=== PATIENT | female | born 1995 | race Hispanic/Latino ===

== ENCOUNTER 2017-03-28 13:47 | Inpatient (IN) | payer OTHER ==
[2017-03-28 20:52] VITALS: BMI 28.5
[2017-03-28] MEDS: Lactated Ringer's 1,000 ML IV SCH (21:06)
[2017-03-28] MEDS ORDERED: Promethazine HCl 25 MG/ML VIAL IM PRN (21:17)
[2017-03-28] MEDS ORDERED: Diphenoxylate HCl/Atropine Tablet PO PRN (21:17)
[2017-03-28] MEDS ORDERED: Ibuprofen 800 MG TAB PO PRN (21:17)
[2017-03-28] MEDS ORDERED: Ondansetron HCl/PF 4 MG/2 ML Vial IVP PRN (21:17)
[2017-03-28] MEDS ORDERED: Misoprostol 200 MCG TAB PR PRN (21:17)
[2017-03-28] MEDS ORDERED: Carboprost 250 MCG/ML AMP IM PRN (21:17)
[2017-03-28] MEDS ORDERED: Lidocaine 1% (PF) 30 ML VIAL SC PRN (21:17)
[2017-03-28] MEDS ORDERED: Zolpidem Tartrate 5 MG TAB PO PRN (21:17)
[2017-03-28] MEDS ORDERED: Acetaminophen 500 MG TAB PO PRN (21:17)
[2017-03-28] MEDS ORDERED: HYDROcodone/Acetaminophen 5/325 mg Tablet PO PRN (21:17)
[2017-03-28] MEDS ORDERED: LR 500 ML/Oxytocin 10 units 500 ML IV SCH (21:30)
[2017-03-28 21:31] LABS: Hematocrit 32.1 % (36.0-47.0); Mean Platelet Volume 8.1 fL (7.4-10.4); Red Blood Cell (RBC) Count 3.48 mill/uL (4.20-5.40); White Blood Cell (WBC) Count 13.7 thou/uL (4.8-10.8)
[2017-03-28] MEDS: Misoprostol 100 MCG TAB VAG SCH (21:36)
[2017-03-29] MEDS: Misoprostol 100 MCG TAB VAG SCH ×2 (01:17→04:38)
[2017-03-29] MEDS: Lactated Ringer's 1,000 ML IV SCH ×3 (03:26→10:24)
[2017-03-29] MEDS ORDERED: Fentanyl 4 mcg/Marc 0.1% Cadd 100 ML ONE (08:48)
[2017-03-29] MEDS ORDERED: Ondansetron HCl/PF 4 MG/2 ML Vial IVP PRN ×2 (09:37→18:52)
[2017-03-29] MEDS ORDERED: ePHEDrine/0.9% NaCl/PF SYRINGE 50 mg/10 ml SLOW IVP PRN (09:37)
[2017-03-29] MEDS ORDERED: Promethazine HCl 25 MG/ML VIAL IM PRN ×2 (09:37→18:52)
[2017-03-29] MEDS ORDERED: Lactated Ringer's 500 ML IV PRN (09:37)
[2017-03-29] MEDS ORDERED: Naloxone HCl 0.4 mg/ml Vial IVP PRN ×2 (09:37)
[2017-03-29] MEDS ORDERED: diphenhydrAMINE 50 MG/ML VIAL IVP PRN (09:37)
[2017-03-29] MEDS ORDERED: Acetaminophen 325 MG TAB PO PRN (09:37)
[2017-03-29] MEDS ORDERED: Eucerin (Mineral Oil/Petrolatum,White) 30 gm Jar TOP PRN (09:37)
[2017-03-29] MEDS ORDERED: Fentanyl 4mcg/Marcaine 0.1% Cassette 100 ML EPIDURAL SCH (09:45)
[2017-03-29] MEDS ORDERED: Communication Order-Pharmacy FS SCH (09:45)
--- NOTE | 2017-03-29 09:53 | PDOC.LDHP ---
Labor and Delivery H&P Chief complaint: scheduled induction HPI: 22yo at 39w with IUGR for IOL. received 3 doses cytotec overnight. Some cramping, no severe painful ctx Current gestational age (weeks): 39 Due date: 04/04/17 Dating criteria: last menstrual period Grav: 1 Para: 0 Current complications: IUGR (concern at 34w for IUGR based on AC at 2% , improved at 36w AC was 13%) Abnormal US findings: Yes (IUGR, EFW 13%-->26% at 36w) Past Medical History: denies Current medications: pre-katlyn vitamins, iron Previous surgical history: none Allergies/Adverse Reactions: Allergies Allergy/AdvReac Type Severity Reaction Status Date / Time No Known Allergies Allergy Verified 03/28/17 20:44 Social history: none - Physical Exam Vital signs reviewed and normal: yes General: NAD Heart: RRR Lungs: CTAB Abdomen: gravid Extremeties: no edema FHT: category 1 [place] contractions every: q3-4min - Vaginal Exam cm dilated: 2 (some areas of erythema on bilateral vulva, pt notes irritation, no painful lesions, more consistent with folliculitis. prev had neg HSV PCR) Effacement: 75% Station: -2 (arom clear) - OB Labs Blood type: O RH: positive Antibody Screen: negative HIV: negative RPR: negative HEPSAg: negative 1 hour GCT: negative GBS: negative Rubella: immune - Assessment L&D Assessment: medically indicated induction - Plan Plan: admit to L&D, cervical ripening, labor augmentation if indicated, informed consent obtained, anesthesia consult for pain management
--- NOTE | 2017-03-29 12:34 | PDOC.LDPN ---
Labor & Delivery Progress Note - Subjective Subjective: comfortable - Objective Vital signs reviewed and normal: yes General: NAD Uterine fundus: non tender Dilation: 5 Effacement: 75% Station: -2 FHT: category 2, early decelerations, variable decelerations [place] contractions every: q2-3min - Assessment (1) Intrauterine growth restriction (IUGR) affecting care of mother, third trimester, single gestation Code(s): O36.5930 - MATERN CARE FOR OTH OR SUSP POOR FETL GRTH, THIRD TRI, UNSP Current Visit: Yes Status: Acute Plan: continue plan of care -: on 4 of pitocin, cont position changes for fetus to navigate pelvis. FHT reassuring.
[2017-03-29] MEDS: LR / Pitocin 40 units/1000 ml 1,000 ML IV PRN ×2 (15:46→18:27)
[2017-03-29 15:48] LABS: CO2 Tension (PaCO2) 49.6 mmHg (44.0-56.0)
--- NOTE | 2017-03-29 15:57 | PDOC.OPDEL ---
OB Operative/Delivery Note Delivery Dr/Surgeon: Eber Assist: n/a Pre-Delivery Diagnosis: medically indicated induction (, NRFHT, IUGR) Procedure/Post Delivery Dx: spontaneous vaginal delivery Weeks gestation: 39 Anesthesia: epidural - Findings A Sex: female Weight: 6 lb 2 oz - 1 min: 8 - 5 min: 9 - Additional Findings/Plan Placenta delivered: spontaneous Repaired Obstetrical Laceration: episiotomy (2nd degree epis to facilitate delivery due to NRFHT, repaired 2-0 vicryl in usual fashion) Estimated blood loss: 400 Post delivery plan: routine recovery
[2017-03-29] MEDS ORDERED: diphenhydrAMINE 25 MG CAP PO PRN (18:52)
[2017-03-29] MEDS ORDERED: Lanolin Ointment 7 GM TUBE TOP PRN (18:52)
[2017-03-29] MEDS ORDERED: LR / Pitocin 40 units/1000 ml 1,000 ML IV SCH (18:52)
[2017-03-29] MEDS ORDERED: HYDROcodone/Acetaminophen 5/325 mg Tablet PO PRN ×2 (18:52)
[2017-03-29] MEDS ORDERED: Preparation H Ointment 28 GM TUBE PR PRN (18:52)
[2017-03-29] MEDS ORDERED: Milk Of Magnesia 30 ML UDCUP PO PRN (18:52)
[2017-03-29] MEDS ORDERED: Benzocaine/Menthol 20-0.5% 60 ML CAN TOP PRN (18:52)
[2017-03-29] MEDS ORDERED: Bisacodyl 10 MG SUPP PR PRN (18:52)
[2017-03-29] MEDS ORDERED: Adacel (T-DAP) 0.5 ML VIAL IM ONE (18:52)
[2017-03-29] MEDS ORDERED: Ferrous Sulfate 325 MG TAB PO SCH (19:30)
[2017-03-29] MEDS: Docusate (Surfak) 240 MG CAP PO SCH (21:07)
[2017-03-29] MEDS ORDERED: Ibuprofen 800 MG TAB PO SCH (22:00)
[2017-03-30] MEDS: Misoprostol 100 MCG TAB VAG SCH ×2 (00:06→00:07)
[2017-03-30] MEDS: Ibuprofen 800 MG TAB PO SCH ×3 (00:18→16:33)
[2017-03-30 06:17] LABS: Hematocrit 27.3 % (36.0-47.0); Mean Platelet Volume 7.9 fL (7.4-10.4); Red Blood Cell (RBC) Count 2.92 mill/uL (4.20-5.40)
[2017-03-30] MEDS: Ferrous Sulfate 325 MG TAB PO SCH ×2 (08:24→16:33)
[2017-03-30] MEDS: Docusate (Surfak) 240 MG CAP PO SCH ×2 (09:28→21:58)
[2017-03-30] MEDS: Prenatal Vitamin 1 TAB PO SCH (09:28)
--- NOTE | 2017-03-30 09:30 | PDOC.PP ---
Post Progress Note Post Day #: 1 PO intake tolerated: yes Flatus: yes Ambulation: yes Vital Signs (12 hours) Temp Pulse Resp BP 03/30/17 08:52 97.9 F 98 18 105/64 03/30/17 08:00 98 F 78 16 03/30/17 04:00 98 F 78 16 98/51 L 03/30/17 00:00 97.8 F 83 16 113/58 L 03/29/17 21:50 98.6 F 88 16 109/61 Weight Weight 146 lb - Physical Examination General: NAD Cardiovascular: RRR Respiratory: non-labored breathing Abdominal: no distention, appropriately TTP Fundus firm & at: umb Extremities: negative homans (B) Skin: no rash Neurological: no gross focal deficits Psychiatric: normal affect Result Diagrams: 03/30/17 05:46 Additional Labs: Post Labs Blood Type O POSITIVE 03/28/17 21:12 Hep Bs Antigen Non-Reactive S/CO (NonReactive) 03/28/17 21:12 (1) Intrauterine growth restriction (IUGR) affecting care of mother, third trimester, single gestation Code(s): O36.5930 - MATERN CARE FOR OTH OR SUSP POOR FETL GRTH, THIRD TRI, UNSP Status: Acute (2) Term delivered Code(s): O80 - ENCOUNTER FOR FULL-TERM UNCOMPLICATED DELIVERY Status: Acute - Assessment/Plan VSSAF Doing well, lochia = menses Pain controlled Rh pos RImm Cont PP care, home tomorrow
[2017-03-31] MEDS: Ibuprofen 800 MG TAB PO SCH ×2 (00:25→09:20)
[2017-03-31 08:32] VITALS: BP 100/57; TEMP 98.1
[2017-03-31] MEDS: Ferrous Sulfate 325 MG TAB PO SCH (09:20)
[2017-03-31] MEDS: Prenatal Vitamin 1 TAB PO SCH (09:20)
[2017-03-31] MEDS: Docusate (Surfak) 240 MG CAP PO SCH (09:20)
--- NOTE | 2017-03-31 13:13 | PDOC.PP ---
Post Progress Note Post Day #: 2 PO intake tolerated: yes Flatus: yes Ambulation: yes Vital Signs (12 hours) Temp Pulse Resp BP 03/31/17 08:32 98.1 F 89 20 100/57 L 03/31/17 08:00 98.1 F 89 20 Weight Weight 146 lb - Physical Examination General: NAD Cardiovascular: RRR Respiratory: non-labored breathing Abdominal: no distention, appropriately TTP Fundus firm & at: umb-2 Neurological: no gross focal deficits Psychiatric: normal affect Result Diagrams: 03/30/17 05:46 Additional Labs: Post Labs Blood Type O POSITIVE 03/28/17 21:12 Hep Bs Antigen Non-Reactive S/CO (NonReactive) 03/28/17 21:12 (1) Intrauterine growth restriction (IUGR) affecting care of mother, third trimester, single gestation Code(s): O36.5930 - MATERN CARE FOR OTH OR SUSP POOR FETL GRTH, THIRD TRI, UNSP Status: Acute (2) Term delivered Code(s): O80 - ENCOUNTER FOR FULL-TERM UNCOMPLICATED DELIVERY Status: Acute - Assessment/Plan VSSAF Doing well, no problems s/p LC Rh pos RImm DC home fu 6wk
== END 2017-03-31 15:50 | disposition home or self-care (01) | DRG 775 ==
LOC: L&D 20:18 → 3SW 03-29 18:53
PROVIDERS: ADMIT Student in an Organized Health Care Education/Training Program; ATTEND Student in an Organized Health Care Education/Training Program
PROC: 3E0P7VZ Introduction of Hormone into Female Reproductive, Via Natural or Artificial Opening (ICD-10-PCS; 2017-03-28)
PROC: 10E0XZZ Delivery of Products of Conception, External Approach (ICD-10-PCS; principal; 2017-03-29)
PROC: 0W8NXZZ Division of Female Perineum, External Approach (ICD-10-PCS; 2017-03-29)
PROC: 10907ZC Drainage of Amniotic Fluid, Therapeutic from Products of Conception, Via Natural or Artificial Opening (ICD-10-PCS; 2017-03-29)
DX: O36.5930 Maternal care for other known or suspected poor fetal growth, third trimester, not applicable or unspecified (principal); Z37.0 Single live birth; Z3A.39 39 weeks gestation of pregnancy
CPT/HCPCS: 36415; 82805; 85027; 86780; 87340; J2001; J7120